=== PATIENT | male | born 1970 | race Caucasian/White ===

== ENCOUNTER 2021-09-18 07:21 | Day surgery (SDC) | payer BC ==
[2021-09-18 07:53] LABS: Absolute Lymphocytes (CBC) 0.8 K/uL (0.7-4.9); Hematocrit 44.6 % (39.6-49.0); Lymphocytes % 6.4 % (15.3-44.8); MPV 7.8 fL (7.6-11.3); RBC Red Blood Cell Count 5.05 M/uL (4.33-5.43)
[2021-09-18] MEDS ORDERED: Ringers Lactate 1,000 ML IV ONE (08:04)
[2021-09-18] MEDS ORDERED: CEFAZOLIN 2 GM IN 0.9% NACL 2 GM/100 ML BAG ONE (08:05)
[2021-09-18] MEDS ORDERED: METHYLENE BLUE 0.5% 10 ML AMP ONE (08:19)
[2021-09-18] MEDS ORDERED: BUPIVACA 0.5%/EPI 0.0005%/PF 30 ML VIAL ONE (08:19)
[2021-09-18] MEDS ORDERED: propofoL 200 MG/20 ML VIAL IV ONE (08:35)
[2021-09-18] MEDS ORDERED: FENTANYL CITR 100 MCG/2 ML ONE (08:35)
[2021-09-18] MEDS ORDERED: MIDAZOLAM HCL 2 MG/2 ML INJ ONE (08:36)
[2021-09-18] MEDS ORDERED: LIDOCAINE 1% MPF 5 ML VIAL ONE (08:36)
[2021-09-18] MEDS ORDERED: ONDANSETRON 4 MG/2 ML VIAL ONE (08:37)
[2021-09-18] MEDS ORDERED: METOCLOPRAMIDE 10 MG/2mL INJ ONE (09:08)
[2021-09-18] MEDS ORDERED: SODIUM HYPOCHLORITE 0.25% 473 ML ONE (09:21)
--- NOTE | 2021-09-18 09:37 | P.OP ---
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
[2021-09-18] MEDS: FENTANYL CITR 100 MCG/2 ML ONE ×2 (10:21→10:29)
[2021-09-18 10:56] VITALS: BP 113/74; O2SAT 95
[2021-09-18] MEDS ORDERED: HYDROCODONE/APAP 10/325 TAB ONE (11:43)
[2021-09-18 11:50] VITALS: TEMP 99.2
--- NOTE | 2021-09-18 15:20 | OP ---
Date of Procedure: 09/18/2021 Surgeon: Robert Mancilla MD, Preoperative Diagnosis: Perirectal abscess. 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 Procedures Performed: 1.Exam under anesthesia. 2.Incision and drainage of perineal abscess. 3.Placement of seton. Anesthesia: General endotracheal plus local with 0.5% Marcaine with epinephrine. Estimated Blood Loss: Less than 10 mL. Specimen: Culture sent for aerobic and anaerobic speciation. Findings: Fistula noted. Complications: None. Implants: [employer] seton. Disposition: The patient was transferred to the recovery room in good condition. Procedure In Detail: After informed consent was obtained, the patient was brought to the operating r oom, prepped and draped in the usual sterile fashion after adequate anesthesia was achieved. The pat ient was in steep lithotomy position. I performed anoscopy at this point and noted purulent material consistent with pus emanating from the right lateral wall just superior to a hemorrhoidal column. W steve I palpated the perianal abscess, the purulent fluid/abscess material entered the rectal vault at this point consistent with a fistulous connection. I then anesthetized the skin of the left gluteal area and perianal area and made a linear incision for approximately 3.5 to 4 cm. I immediately encou ntered a large amount of purulent feculent material consistent with infected abscess material. This was cultured for both aerobic and anaerobic speciation at this time. I digitized the entire tract an d palpated the area and found that the fistula was infected going transsphincteric into the rectal wa ll. I achieved hemostasis circumferentially around with electrocautery of the abscess cavity. I the n removed all necrotic tissue and irrigated it once again until completely clear. I then passed a cu tting seton on a lacrimal probe through the fistulous tract and secured it with a 0 silk suture. I hector wilson packed the wound with Dakin-soaked Kerlix and a sterile dressing placed over top. The patient to lerated the procedure well without evidence of complication and transferred to PACU in good condition . All counts were correct at the end of the case. LISETH/NANCYL Voice ID: [id number] Report ID: [id number]
--- NOTE | 2021-09-19 08:10 | EKG ---
Test Date: 2021-09-18 Test Time: 07:37:15 Core Drill Operator Helper: RUTH MEASUREMENT RESULTS: Intervals: Rate: 126 SC: 156 QRSD: 88 QT: 304 QTc: 440 [place]: P: 37 SC: 156 QRS: 27 T: 22 INTERPRETIVE STATEMENTS: Sinus tachycardia Septal infarct, age undetermined Abnormal ECG No previous ECG available for comparison Electronically Signed On 09-19-21 08:05:50 CDT by Bernardino Donohue
== END 2021-09-18 11:47 | disposition home or self-care (01) ==
LOC: OR 07:21
PROVIDERS: ATTEND Surgery
PROC: 0J9B0ZX Drainage of Perineum Subcutaneous Tissue and Fascia, Open Approach, Diagnostic (ICD-10-PCS; principal; 2021-09-18 09:15)
DX: K61.39 Other ischiorectal abscess (principal)
CPT/HCPCS: 93005; 87070; 85025; 80048; 36415; 87205; 87075; 46060; J2704; J2765; J2250; J3010 ×2; J0690; J7120; J2405; 87077; 87186

== ENCOUNTER 2022-03-22 10:26 | Day surgery (SDC) | payer BC ==
[2022-03-21 16:38] LABS: Potassium 4.1 mmol/L (3.5-5.1)
[2022-03-22] MEDS ORDERED: Ringers Lactate 1,000 ML IV ONE (10:47)
[2022-03-22] MEDS ORDERED: CEFAZOLIN SODIUM 2 GM/VIAL ONE (10:47)
[2022-03-22] MEDS ORDERED: MIDAZOLAM HCL 2 MG/2 ML INJ ONE ×2 (10:51→12:37)
[2022-03-22] MEDS ORDERED: propofoL 200 MG/20 ML VIAL IV ONE ×2 (10:51→12:37)
[2022-03-22] MEDS ORDERED: FENTANYL CITR 100 MCG/2 ML ONE ×2 (10:51→12:37)
[2022-03-22] MEDS ORDERED: LIDOCAINE 2% MPF 5 ML VIAL ONE ×2 (10:52→12:37)
[2022-03-22] MEDS ORDERED: ONDANSETRON 4 MG/2 ML VIAL ONE ×2 (10:53→13:08)
[2022-03-22] MEDS ORDERED: BUPIVACAINE 0.25% PF 10 ML VIAL ONE (11:55)
[2022-03-22] MEDS ORDERED: CELECOXIB 100 MG CAPSULE ONE (12:09)
[2022-03-22] MEDS ORDERED: ACETAMINOPHEN 500 MG TAB ONE (12:09)
[2022-03-22] MEDS ORDERED: dexAMETHasone 10 MG/ML VIAL ONE (12:42)
--- NOTE | 2022-03-22 12:52 | EKG ---
Test Date: 2022-03-21 Test Time: 15:47:25 Tactical Debriefer: MARIA G MEASUREMENT RESULTS: Intervals: Rate: 69 [place]: 142 QRSD: 94 QT: 368 QTc: 394 [place]: P: 10 OH: 142 QRS: 59 T: 58 INTERPRETIVE STATEMENTS: Normal sinus rhythm Normal ECG Compared to ECG 09/18/2021 07:37:15 Sinus tachycardia no longer present Myocardial infarct finding no longer present Electronically Signed On 03-22-22 12:51:36 BRIDGE OPERATOR SLIP by José Miguel Cui
[2022-03-22] MEDS ORDERED: NS 0.9% VIAL 10 ML ONE (12:58)
[2022-03-22] MEDS ORDERED: KETOROLAC 30 MG/ML INJ ONE (13:08)
--- NOTE | 2022-03-22 14:05 | P.OP ---
Preoperative diagnosis: Persistent Perianal Fisula Postoperative diagnosis: Persistent Perianal Fisula Primary procedure: Exam under anesthesia with placement of porcine plug graft Anesthesia: GETA Estimated blood loss: <5cc Specimen: none Findings: small LEFT lateral perianal fistula Complications: None Implants: [email or web address] medium fistula plug Transferred to: Recovery Room Condition: Good
[2022-03-22 14:53] VITALS: BP 113/74; TEMP 97.2; O2SAT 96
--- NOTE | 2022-03-22 20:16 | OP ---
Date of Procedure: 03/22/2022 Surgeon: Robert Mancilla MD, Preoperative Diagnosis: Persistent perianal fistula. Postoperative Diagnosis: Persistent perianal fistula. Procedures Performed: 1.Exam under anesthesia. 2.Placement of porcine tissue graft into fistula. Anesthesia: General endotracheal. Estimated Blood Loss: Less than 5 cc. Specimen: None. Findings: Small left lateral perianal persistent fistula. Complications: None. Implants: [employer] medium porcine plug system. Disposition: The patient was transferred to recovery room in good condition. Procedure In Detail: After informed consent was obtained, patient was brought to the operating room and prepped and draped in the usual sterile fashion. After adequate anesthesia was achieved, patient remained in lithotomy position and I performed sequential examination of the perianal area. On the left perianal skin, there was an open draining fistula, which communicated with the left rectal wall. It was visualized upon endoscopy. After adequate sized anoscope was placed, I proceeded to pass a lacrimal probe through this fistula with a suture attached to the end and I brought the suture out of the field. I then irrigated the channel with hydrogen peroxide solution on a syringe until I saw fo aming coming out of both ends of the fistulous track. At this point, I secured the fistula plug of a medium size and had it placed on the backfield. I used the fistula plug brush and passed it through the canal and brushed the fistulous tract multiple times to ensure cleanliness. I then irrigated th e area once again with peroxide and brushed it once again. At this point, the pressure remained in p lace and secured the medium [employer] porcine fistula plug to the suture, which was placed via lac rimal probe. I then pulled it through the fistulous tract with the button on the rectal wall. At th is point, I secured the fistula plug to the rectum using 4 interrupted 0 Vicryl sutures on a UR-6 nee dle. Minimal bleeding was encountered to the area. I then trimmed off the distal aspect of the plug as it was emanating from the skin portion on the left perianal skin. The porcine graft laid near fl [facility] with the skin at this level. I then inspected the anorectal area and placed a damp Gel-Foam pad into the area and the procedure was completed at this point. The patient tolerated the procedure wit hout evidence of any complication and transferred to PACU in good condition. All counts were correct at the end of the case. LISETH/GRACE Voice ID: [id number] Report ID: [id number]
== END 2022-03-22 15:05 | disposition home or self-care (01) ==
LOC: OR 10:26
PROVIDERS: ATTEND Surgery
PROC: 0HB9XZZ Excision of Perineum Skin, External Approach (ICD-10-PCS; principal; 2022-03-22 12:00)
DX: K60.3 Anal fistula (principal)
CPT/HCPCS: 93005; 80048; 36415; 46707; J2704; J2001; J2250; J3010; J1100; A4216; J7120; J2405

== ENCOUNTER 2022-04-26 07:30 | Day surgery (SDC) | payer BC ==
[2022-04-24 08:57] LABS: Potassium 4.6 mmol/L (3.5-5.1)
[2022-04-26] MEDS ORDERED: CEFAZOLIN SODIUM 2 GM/VIAL ONE (07:57)
[2022-04-26] MEDS ORDERED: Ringers Lactate 1,000 ML IV ONE (07:58)
[2022-04-26] MEDS ORDERED: BUPIVACAINE 0.25% PF 10 ML VIAL ONE (08:23)
[2022-04-26] MEDS ORDERED: METHYLENE BLUE 0.5% 10 ML AMP ONE (08:24)
[2022-04-26] MEDS ORDERED: MIDAZOLAM HCL 2 MG/2 ML INJ ONE (08:47)
[2022-04-26] MEDS ORDERED: propofoL 200 MG/20 ML VIAL IV ONE (08:52)
[2022-04-26] MEDS ORDERED: FENTANYL CITR 100 MCG/2 ML ONE ×2 (08:53→09:59)
[2022-04-26] MEDS ORDERED: LIDOCAINE 2% MPF 5 ML VIAL ONE (08:53)
[2022-04-26] MEDS ORDERED: dexAMETHasone 4 MG/ML VIAL ONE (09:02)
[2022-04-26] MEDS ORDERED: ONDANSETRON 4 MG/2 ML VIAL ONE (09:02)
[2022-04-26] MEDS ORDERED: LIDOCAINE 1.5% W/EPI AMP 5 ML ONE (10:09)
[2022-04-26] MEDS ORDERED: KETOROLAC 30 MG/ML INJ ONE (10:16)
--- NOTE | 2022-04-26 10:23 | P.OP ---
Preoperative diagnosis: Chronic Perianal Fistula Postoperative diagnosis: Chronic Perianal Fistula Primary procedure: Exam under anesthesia Secondary procedure: Placement of Perianal Fistula Plug Porcine Graft Other procedure(s): Rectal mucosa advancement flap Anesthesia: GETA + Local Estimated blood loss: <30cc Specimen: none Findings: LEFT lateral perirectal fistula Complications: None Implants: [employer] Porcine #7 [employer]ign Fistula Plug Transferred to: Recovery Room Condition: Good
[2022-04-26 13:07] VITALS: BP 107/67; TEMP 97; O2SAT 97
--- NOTE | 2022-04-26 19:18 | OP ---
Date of Procedure: 04/26/2022 Surgeon: Robert Mancilla MD, Preoperative Diagnosis: Chronic perianal fistula. Postoperative Diagnosis: Chronic perianal fistula. Procedures Performed: 1.Exam under anesthesia. 2.Placement of perianal/perirectal fistula plug with porcine graft. 3.Rectal mucosal advancement flap. Anesthesia: General endotracheal plus local with 0.25% Marcaine and 1% lidocaine with epinephrine. Estimated Blood Loss: 30 cc. Specimen: None. Findings: Left lateral perirectal fistula right superior to the dentate line. Complications: None. Implants: [employer] porcine #7 [employer] fistula plug. Disposition: The patient was transferred to recovery room in good condition. Procedure In Detail: After informed consent was obtained, the patient was brought to the operating r oom and prepped and draped in the usual sterile fashion. After adequate anesthesia was achieved, the patient remained in lithotomy position. I performed sequential dilation of the anal canal using seq uentially larger anoscopes. Ultimately his fistula was easily visible on the left lateral buttock ch tolowa dee-ni' extending to the left lateral rectal wall just superior at the dentate line. He had internal hem orrhoids as well. I initially first performed an injection of the fistula tract using hydrogen perox minnie. I then passed the brush device through the perirectal/perianal fistula scrubbing the area. I t hen injected hydrogen peroxide once again after the tract was completely cleansed. Peroxide was note d to be emanating from both external and internal orifices. At this point, I took approximately a 1 cm flap of mucosa using electrocautery circumferentially to make a rectal advancement flap. I underm ined slightly. There was minimal bleeding from the area, which was controlled predominantly with pre ssure. At this point, the fistula plug #7 [employer] porcine plug was secured to the internal passing device. The fistula plug was then passed through the canal and noted to be passed through the exter nal orifice at this point. I then secured the fistula plug using 2-0 PDS sutures circumferentially a round the fistula plug to the muscularis layer. At this point, the area was cleansed and found to smith ve good apposition of the plug. At this point, I then brought the mucosal advancement flap over the surface and secured it using a 2-0 Vicryl suture on a UR6 needle with good apposition of the mucosa o verlying this area. Hemostasis was achieved with simple pressure on the hemorrhoidal area, which was adjacent causing some minimal bleeding. I then took a 2-0 PDS suture and secured the external aspec t of the plug emanating at the buttock surface and secured it to the gluteal skin at this point, and a sterile dressing placed over top. Gel-Foam was then hydrated and packed into the anal canal at thi s point, and the procedure completed. The patient tolerated the procedure without any evidence of an y complication and transferred to PACU in good condition. All counts were correct at the end of the case. LISETH/GRACE Voice ID: [id number] Report ID: [id number]
== END 2022-04-26 11:55 | disposition home or self-care (01) ==
LOC: OR 07:30
PROVIDERS: ATTEND Surgery
PROC: 0JX90ZB Transfer Buttock Subcutaneous Tissue and Fascia with Skin and Subcutaneous Tissue, Open Approach (ICD-10-PCS; 2022-04-26)
PROC: 0HB9XZZ Excision of Perineum Skin, External Approach (ICD-10-PCS; principal; 2022-04-26 08:30)
DX: K60.3 Anal fistula (principal)
CPT/HCPCS: 80048; 36415; 46707; 14000; J2704; J1100; J2001; J2250; J3010 ×2; J7120; J2405; Q9968